=== PATIENT | female | born 1985 | race Caucasian/White ===

== ENCOUNTER 2016-09-13 15:36 | Emergency (ER) | payer OTHER ==
[~2016-09-13] VITALS: Wt 68.2 kg
[2016-09-13 16:53] LABS: BASOPHILS % 0.5 % (0.0-2.0); EOSINOPHILS # 0.2 10^3/ul (0.0-0.5); EOSINOPHILS % 2.9 % (0.0-7.0); HEMATOCRIT 39.2 % (37.0-47.0); HEMOGLOBIN 13.1 g/dl (12.0-16.0); LYMPHOCYTES # 2.6 10^3/ul (0.8-2.9); MEAN CORPUSCULAR HEMOGLOBIN 29.4 pg (29.0-33.0); MEAN CORPUSCULAR HGB CONC 33.5 g/dl (32.0-37.0); MEAN CORPUSCULAR VOLUME 87.7 fl (82.0-101.0); MEAN PLATELET VOLUME 9.2 fl (7.4-10.4); MONOCYTE # 0.6 10^3/ul (0.3-0.9); MONOCYTES % 8.6 % (0.0-11.0); NEUTROPHIL # 4.1 10^3/ul (1.6-7.5); PLATELET COUNT 265 10^3/UL (140-440); RED BLOOD COUNT 4.47 10^6/ul (4.20-5.40); RED CELL DISTRIBUTION WIDTH 12.7 % (11.5-14.5); UNCORRECTED WBC 7.5 10^3/ul (4.8-10.8); WHITE BLOOD COUNT 7.5 10^3/ul (4.8-10.8)
[2016-09-13 17:11] LABS: CONDITION 1
[2016-09-13] MEDS ORDERED: ORTNOV PO (17:14)
--- NOTE | 2016-09-13 17:17 | ERD ---
ER Documentation Chief Complaint Date/Time DATE: 09/13/16 TIME: 17:14 Chief Complaint vag bleed x10 days HPI Patient is a 31-year-old female who presents to the ED with vaginal bleeding for 10 days. She states that she has had a period every month after her vaginal delivery that was in March. She states that her periods have been regular and light with a maximum of 4 days. However she states that she did not have her period in July and she got her period 10 days ago. She states that the bleeding decreased about 4 days ago however in the last 3 days she has had an increase in bleeding. She states that she is using 2-3 tampons a day. She denies pelvic pain, fever, chills, nausea, vomiting or diarrhea. She is not using any OCPs or other control methods. She denies abdominal pain. She denies chest pain, shortness of breath or difficulty breathing. She denies dizziness. She denies any other symptoms. ROS All systems reviewed and are negative except as per history of present illness. Medications Home Meds Active Scripts Norethindrone-Ethinyl Estradiol (Ortho-Novum ()) 0.035-1 Mg Tablet, 1 TAB PO DAILY for 30 Days, #30 TAB Prov:CHELE RADER PA-C 09/13/16 PMhx/Soc Medical and Surgical Hx: pt denies Medical Hx, pt denies Surgical Hx History of Surgery: No Anesthesia Reaction: No Hx Neurological Disorder: No Hx Respiratory Disorders: No Hx Cardiac Disorders: No Hx Psychiatric Problems: No Hx Miscellaneous Medical Probl: No Hx Alcohol Use: No Hx Substance Use: No FmHx Family History: No coronary disease, No diabetes, No other Physical Exam Vitals Vital Signs Date Time Temp Pulse Resp B/P Pulse Ox O2 Delivery O2 Flow Rate FiO2 09/13/16 15:38 97.3 83 20 119/64 100 Physical Exam GENERAL: Well-developed, well-nourished female. Appears in no acute distress. HEAD: Normocephalic, atraumatic. EYES: Pupils are equally reactive bilaterally. EOMs grossly intact. No conjunctival erythema. ENT: Moist mucous membranes. No uvula deviation. No kissing tonsils. No exudates. NECK: Supple. No lymphadenopathy or thyromegaly. No meningismus. negative kernig. negative brudinski. LUNG: Clear to auscultation bilaterally. No rhonchi, wheezing, rales or coarse breath sounds. HEART: Regular rate and rhythm. No murmurs, rubs or gallops. ABDOMEN: No scars, ecchymosis or rashes noted. Soft, nontender, and nondistended. Positive bowel sounds in all four quadrants. No rebound tenderness , no guarding. (-) McBurneys point tenderness. No CVA tenderness. BACK: No midline tenderness. Extremities: Equal pulses bilaterally. No peripheral clubbing, cyanosis or edema. No unilateral leg swelling. NEUROLOGIC: Alert and oriented. Moving all four extremities. 5/5 strength in all extremities. Normal speech. Steady gait. SKIN: Normal color. Warm and dry. No rashes or lesions. Capillary refill < 2 seconds Result Diagram: 09/13/16 1640 Results 24 hrs Laboratory Tests Test 09/13/16 16:40 Basophils # 0.010^3/ul Basophils % 0.5% Eosinophils # 0.210^3/ul Eosinophils % 2.9% Hematocrit 39.2% Hemoglobin 13.1g/dl Lymphocytes # 2.610^3/ul Lymphocytes % 34.0% Mean Corpuscular Hemoglobin 29.4pg Mean Corpuscular Hemoglobin Concent 33.5g/dl Mean Corpuscular Volume 87.7fl Mean Platelet Volume 9.2fl Monocytes # 0.610^3/ul Monocytes % 8.6% Neutrophils # 4.110^3/ul Neutrophils % 54.0% Nucleated Red Blood Cells # 0.010^3/ul Nucleated Red Blood Cells % 0.0/100WBC Platelet Count 49406^3/UL Red Blood Count 4.4710^6/ul Red Cell Distribution Width 12.7% White Blood Count 7.510^3/ul Procedures/MDM ER COURSE: I kept the patient and/or family informed of laboratory and diagnostic imaging results throughout the emergency room course. LAB INTERPRETATION: CBC showed no evidence of systemic infection or severe anemia. Urine test was negative. [place] [id number] Radiology Main Line: [phone] DIAGNOSTIC IMAGING REPORT Patient: AIDA BARBOZA : 1985 Age: 31 Sex: F MR #: [id number] DOS: 09/13/16 1633 Ordering MD: CHELE RADER PA-C Location: [facility] Room/Bed: PROCEDURE: US Pelvis CLINICAL INDICATION: Vaginal bleeding. TECHNIQUE: Transabdominal and transvaginal sonographic evaluation of the pelvis was performed. COMPARISON: None. FINDINGS: Myometrium is mildly heterogeneous in echotexture without fibroids. There are multiple Nabothian cysts identified within the cervix. Endometrium is normal in thickness without a focal abnormality. Normal flow to both ovaries. No adnexal mass. There is a dominant follicle within left ovary measuring up to 2.5 cm. No free pelvic fluid. MEASUREMENTS: Uterus: 10.7 x 4.6 x 5.8 cm, anteverted. Endometrium: 0.9 cm Right ovary size: 2.7 x 1.2 x 1.5 cm Left ovary size: 3.7 x 2.3 x 3.1 cm IMPRESSION: 1. Dominant follicle within left ovary without worrisome adnexal cyst or mass seen bilaterally. 2. Otherwise, unremarkable examination. RPTAT: EE .Tung Max MD, MD Date Time Electronically viewed and signed by .Tung Max MD, MD on 09/13/2016 17:50 .C/ CC: CHELE RADER PA-C MEDICAL DECISION MAKING: This is a 31-year-old female who presents with vaginal bleeding. Vital signs were reviewed. Patient is afebrile. Patient is not hypoxic. Patient is not toxic or ill-appearing. Her pulse is 83, blood pressure 119/64. Patient likely has dysfunctional uterine bleeding. Low suspicion for ectopic , , molar , endometriosis, PID, placenta previa, placenta abruptia, preeclampsia, eclampsia, anemia, endometritis, cervicitis, anemia. Low suspicion for ovarian torsion, PID, tuboovarian abscess, ectopic , bowel obstruction, pyelonephritis,appendicitis, UTI, nephroliathisis, septic stone, obstructed stone. DISCHARGE: At this time, patient is stable for discharge and outpatient management with no new complaints during the ER course. Patient was sent home with Sancho-Tai to follow-up with gynecology.. Patient will be discharged home with instructions to recheck for new or worsening symptoms such as fever, nausea, weakness, LOC and to follow up with primary care in the next 1-2 days. Patient was advised to return to the ER for any new or worsening symptoms. Plan was discussed and patient and/or family understands and agrees. Home instructions were given. Departure Diagnosis: Primary Impression: Vaginal bleeding Condition: Stable Patient Instructions: Dysfunctional Uterine Bleeding Referrals: GRACE TAM (PCP) Additional Instructions: Call your primary care doctor TOMORROW for an appointment during the next 1-2 days.See the doctor sooner or return here if your condition worsens before your appointment time. Follow up with gynecology. CHELE RADER PA-C Sep 13, 2016 17:17
--- NOTE | 2016-09-13 17:47 | RADRPT ---
PROCEDURE: US Pelvis CLINICAL INDICATION: Vaginal bleeding. TECHNIQUE: Transabdominal and transvaginal sonographic evaluation of the pelvis was performed. COMPARISON: None. FINDINGS: Myometrium is mildly heterogeneous in echotexture without fibroids. There are multiple Nabothian cy sts identified within the cervix. Endometrium is normal in thickness without a focal abnormality. Normal flow to both ovaries. No adnexal mass. There is a dominant follicle within left ovary measu ring up to 2.5 cm. No free pelvic fluid. MEASUREMENTS: Uterus: 10.7 x 4.6 x 5.8 cm, anteverted. Endometrium: 0.9 cm Right ovary size: 2.7 x 1.2 x 1.5 cm Left ovary size: 3.7 x 2.3 x 3.1 cm IMPRESSION: 1. Dominant follicle within left ovary without worrisome adnexal cyst or mass seen bilaterally. 2. Otherwise, unremarkable examination. RPTAT: EE .Tung Max MD, Date Time Electronically viewed and signed by .Tung Max MD, on 09/13/2016 17:50 .C/
== END 2016-09-13 18:20 | disposition home or self-care (01) ==
LOC: FTE 15:36
DX: N93.9 Abnormal uterine and vaginal bleeding, unspecified (principal)
CPT/HCPCS: 76830; 76856; 85025

== ENCOUNTER 2017-04-19 14:44 | Emergency (ER) | payer OTHER ==
[~2017-04-19] VITALS: Ht 167.6 cm; Wt 87.0 kg
[~2017-04-19 14:44] MED LIST: ORTNOV PO
[2017-04-19 14:54] VITALS: Ht 167.6 cm; Wt 87.0 kg
[2017-04-19] MEDS ORDERED: IBUPROFEN 600 MG TAB PO ONE (15:30)
--- NOTE | 2017-04-19 15:34 | ERD ---
ER Documentation Chief Complaint Date/Time DATE: 04/19/17 TIME: 15:32 Chief Complaint Complains of chest pain x 3 days HPI 31-year-old female otherwise healthy presents with midsternal chest pain, for the past 3 days described as sharp, intermittent and worse with breathing in and out. She reports that she has had a cough over the last week and a half as well. She has not had any fevers, chills. Denies shortness of breath. ROS All systems reviewed and are negative except as per history of present illness. Medications Home Meds Active Scripts Ibuprofen* (Motrin*) 600 Mg Tab, 600 MG PO Q6, #30 TAB Prov:RAFAEL MILLS PA-C 04/19/17 Benzonatate* (Tessalon Perle*) 100 Mg Capsule, 100 MG PO Q8H Y for COUGH, #30 CAP Prov:RAFAEL MILLS PA-C 04/19/17 Norethindrone-Ethinyl Estradiol (Ortho-Novum ()) 0.035-1 Mg Tablet, 1 TAB PO DAILY for 30 Days, #30 TAB Prov:CHELE RADER PA-C 09/13/16 Allergies Allergies: Uncoded Allergies: SHELLFISH (Allergy, Unknown, 04/19/17) PMhx/Soc Medical and Surgical Hx: pt denies Medical Hx, pt denies Surgical Hx History of Surgery: No Anesthesia Reaction: No Hx Neurological Disorder: No Hx Respiratory Disorders: No Hx Cardiac Disorders: No Hx Psychiatric Problems: No Hx Miscellaneous Medical Probl: No Hx Alcohol Use: No Hx Substance Use: No Hx Tobacco Use: No Smoking Status: Never smoker Physical Exam Vitals Vital Signs Date Time Temp Pulse Resp B/P Pulse Ox O2 Delivery O2 Flow Rate FiO2 04/19/17 14:54 98.3 70 20 110/53 100 Physical Exam General: Well-developed, well-nourished. The patient appears in no acute distress. HEENT: Head is normocephalic, atraumatic. No scleral icterus. Neck: Supple. Nontender. Lungs: Clear to auscultation. Normal air movement. Reproducible chest wall tenderness over the sternum. Heart: Regular rate and rhythm. S1 and S2 are normal. No murmurs, gallops, or rubs. Abdomen: Soft, nontender, nondistended. Bowel sounds are normoactive. Extremities: No clubbing or cyanosis. Normal pulses. Moving extremities x 4. No weakness. Neurologic: Alert and oriented 3. No focal deficits. Skin: Normal turgor. No rash or lesions. Result Diagram: 04/19/17 1540 04/19/17 1540 Results 24 hrs Laboratory Tests Test 04/19/17 15:40 White Blood Count 9.010^3/ul Red Blood Count 4.3910^6/ul Hemoglobin 11.9g/dl Hematocrit 38.1% Mean Corpuscular Volume 86.8fl Mean Corpuscular Hemoglobin 27.1pg Mean Corpuscular Hemoglobin Concent 31.2g/dl Red Cell Distribution Width 12.7% Platelet Count 11295^3/UL Mean Platelet Volume 12.0fl Neutrophils % 58.2% Lymphocytes % 31.0% Monocytes % 7.9% Eosinophils % 1.9% Basophils % 0.6% Nucleated Red Blood Cells % 0.0/100WBC Neutrophils # (Manual) 510^3/ul Lymphocytes # 2.810^3/ul Monocytes # 0.710^3/ul Eosinophils # 0.210^3/ul Basophils # 0.110^3/ul Nucleated Red Blood Cells # 0.010^3/ul Urine Color STRAW Urine Clarity CLEAR Urine pH 7.0 Urine Specific [place] 1.013 Urine Ketones NEGATIVEmg/dL Urine Nitrite NEGATIVEmg/dL Urine Bilirubin NEGATIVEmg/dL Urine Urobilinogen NEGATIVEmg/dL Urine Leukocyte Esterase 1+Teja/ul Urine Microscopic RBC 0/HPF Urine Microscopic WBC 1/HPF Urine Bacteria FEW/HPF Urine Hemoglobin NEGATIVEmg/dL Urine Glucose NEGATIVEmg/dL Urine Total Protein NEGATIVEmg/dl Sodium Level 139mmol/L Potassium Level 4.5mmol/L Chloride Level 103mmol/L Carbon Dioxide Level 27mmol/L Anion Gap 14 Blood Urea Nitrogen 11mg/dl Creatinine 0.65mg/dl Glucose Level 97mg/dl Calcium Level 9.2mg/dl Total Bilirubin 0.0mg/dl Direct Bilirubin 0.00mg/dl Indirect Bilirubin 0.0mg/dl Aspartate Amino Transf (AST/SGOT) 21IU/L Alanine Aminotransferase (ALT/SGPT) 33IU/L Alkaline Phosphatase 65IU/L Troponin I < 0.012ng/ml Total Protein 6.9g/dl Albumin 4.0g/dl Globulin 2.90g/dl Albumin/Globulin Ratio 1.37 Lipase 232U/L Current Medications Medications (Trade) Dose Ordered Sig/Aaron Route PRN Reason Start Time Stop Time Status Last Admin Dose Admin Ibuprofen (Motrin) 600 mg ONCE ONCE PO 04/19/17 15:30 04/19/17 15:31 DC 04/19/17 15:57 DIAGNOSTIC IMAGING REPORT Patient: AIDA BARBOZA : 1985 Age: 31 Sex: F MR #: [id number] DOS: 04/19/17 1524 Ordering MD: RAFAEL MILLS PA-C Location: [facility] Room/Bed: PROCEDURE: XR Chest. CLINICAL INDICATION: Chest pain. TECHNIQUE: Single frontal view. COMPARISON: None. FINDINGS: The lungs are clear. The heart size is normal. There is no pleural effusion. There is no pneumothorax. IMPRESSION: 1. Normal chest radiograph. RPTAT: QQ .Edson Mckeon MD, MD Date Time Electronically viewed and signed by .Edson Mckeon MD, MD on 04/19/2017 17:11 .R/ Procedures/MDM 12-lead EKG(interpreted by supervising physician): Reviewed by Dr. Newsome Rate/Rhythm: Normal Sinus Rhythm, rate of 74 QRS, ST, T-waves: No changes consistent w/ acute ischemia, no intervals, no dysrhythmias, no ectopy Impression: No evidence of ischemia or arrhythmia MDM: 31-year-old female presents with chest pain intermittent for the last 3 days associated with cough and reproducible upon palpation. She states that was radiating to her back, along the thoracic region and is consistent with costochondritis. Patient's symptoms are not concerning for dissection or acute coronary syndrome, pulmonary embolus. Chest x-ray was performed that was normal. All blood work is unremarkable, she is stable for discharge. Patient was given ibuprofen in the emergency department for symptoms with significant improvement of her pain. Departure Diagnosis: Primary Impression: Chest pain Condition: Good RAFAEL MILLS PA-C Apr 19, 2017 15:34
[2017-04-19 16:00] LABS: BASOPHIL # 0.1 10^3/ul (0.0-0.1); BASOPHILS % 0.6 % (0.0-2.0); EOSINOPHILS # 0.2 10^3/ul (0.0-0.5); EOSINOPHILS % 1.9 % (0.0-7.0); HEMATOCRIT 38.1 % (37.0-47.0); HEMOGLOBIN 11.9 g/dl (12.0-16.0); LYMPHOCYTES # 2.8 10^3/ul (0.8-2.9); MEAN CORPUSCULAR HEMOGLOBIN 27.1 pg (29.0-33.0); MEAN CORPUSCULAR HGB CONC 31.2 g/dl (32.0-37.0); MEAN CORPUSCULAR VOLUME 86.8 fl (82.0-101.0); MONOCYTE # 0.7 10^3/ul (0.3-0.9); MONOCYTES % 7.9 % (0.0-11.0); NEUTROPHILS % 58.2 % (39.0-77.0); PLATELET COUNT 260 10^3/UL (140-415); RED BLOOD COUNT 4.39 10^6/ul (4.20-5.40); RED CELL DISTRIBUTION WIDTH 12.7 % (11.5-14.5)
[2017-04-19 16:01] LABS: ADD UMIC YES; UR ASCORBIC ACID NEGATIVE (NEGATIVE); UR BACTERIA FEW /HPF (NONE SEEN); UR BILIRUBIN (Dip) NEGATIVE (NEGATIVE); UR BLOOD (Dip) NEGATIVE (NEGATIVE); UR CLARITY CLEAR (CLEAR); UR COLOR STRAW (YELLOW); UR GLUCOSE (Dip) NEGATIVE (NEGATIVE); UR KETONES (Dip) NEGATIVE (NEGATIVE); UR LEUKOCYTE ESTERASE (Dip) 1+ Leu/ul (NEGATIVE); UR NITRITE (Dip) NEGATIVE (NEGATIVE); UR RBC 0 /HPF (0-5); UR SPECIFIC GRAVITY (Dip) 1.013 (1.003-1.030); UR TOTAL PROTEIN (Dip) NEGATIVE (NEGATIVE); UR UROBILINOGEN (Dip) NEGATIVE (NEGATIVE)
[2017-04-19 16:32] LABS: ALANINE AMINOTRANSFERASE 33 IU/L (13-69); ALBUMIN/GLOBULIN RATIO 1.37; ALKALINE PHOSPHATASE 65 IU/L (42-121); ANION GAP 14 (8-16); ASPARTATE AMINO TRANSFERASE 21 IU/L (15-46); BLOOD UREA NITROGEN 11 mg/dl (7-20); CALCIUM 9.2 mg/dl (8.4-10.2); CARBON DIOXIDE 27 mmol/L (21-31); CHLORIDE 103 mmol/L (97-110); CREATININE 0.65 mg/dl (0.44-1.00); GLUCOSE 97 mg/dl (70-220); POTASSIUM 4.5 mmol/L (3.5-5.1); SODIUM 139 mmol/L (135-144); TOTAL PROTEIN 6.9 g/dl (6.1-8.1)
[2017-04-19 16:36] LABS: TROPONIN-I < 0.012 ng/ml (0.00-0.12)
--- NOTE | 2017-04-19 17:12 | RADRPT ---
PROCEDURE: XR Chest. CLINICAL INDICATION: Chest pain. TECHNIQUE: Single frontal view. COMPARISON: None. FINDINGS: The lungs are clear. The heart size is normal. There is no pleural effusion. There is no pneumothorax. IMPRESSION: 1. Normal chest radiograph. RPTAT: QQ .Edson Mckeon MD, Date Time Electronically viewed and signed by .Edson Mckeon MD, on 04/19/2017 17:11 .R/
[2017-04-19] MEDS ORDERED: BENZ100C70 PO (17:19)
[2017-04-19] MEDS ORDERED: IBUP-1542 PO (17:19)
== END 2017-04-19 17:41 | disposition home or self-care (01) ==
LOC: FTE 14:44
DX: R07.9 Chest pain, unspecified (principal)
CPT/HCPCS: 36415; 71010; 80053; 81001; 83690; 84484; 85025; 93005; Z7502; Z7610